=== PATIENT | male | born 1980 | race Hispanic/Latino ===

== ENCOUNTER 2017-12-26 13:15 | Emergency (ER) | payer SELFPAY ==
[2017-12-26] MEDS ORDERED: Adacel (T-DAP) 0.5 ML VIAL ONE (13:40)
--- NOTE | 2017-12-26 14:23 | RAD ---
CHEST ONE VIEW: Comparison: None. History: Trauma. Pain. FINDINGS: Normal cardiac silhouette. The pulmonary vessels and hilum are normal. Costophrenic angles are clear. Lung volumes are diminished, likely due to poor inspiratory effort. No consolidation or mass. No pne umothorax or osseous abnormalities. IMPRESSION: No acute cardiopulmonary process. POS: [facility]
--- NOTE | 2017-12-26 14:30 | CT ---
CT CERVICAL SPINE: Date: 12/26/17 HISTORY: Trauma. Fall 15-ft. FINDINGS: Axial images are obtained with coronal and sagittal reconstructions of the cervical spine. CT images of cervical spine demonstrate cervical spinal alignment to be within normal limits. No evidence of ac michela cervical spine fracture seen. Vertebral bodies and posterior elements are unremarkable. IMPRESSION: Normal CT cervical spine. POS: [facility]
--- NOTE | 2017-12-26 14:33 | CT ---
CT BRAIN: HISTORY: Trauma status post fall 15 feet. The patient hit his head. Noncontrast enhanced CT images of the brain obtained. There is a large left frontal scalp hematoma. The brain is unremarkable. No evidence of intracranial masses, hemorrhages, strokes, or contusions s een. The ventricles are of normal size. Incidentally noted bilateral maxillary sinus mucous retention cyst seen. IMPRESSION: Large left frontal scalp hematoma. No evidence of subdural or subarachnoid hemorrhage seen. POS: [facility]
== END 2017-12-26 14:15 | disposition home or self-care (01) ==
LOC: ERS 13:15
DX: S16.1XXA Strain of muscle, fascia and tendon at neck level, initial encounter (principal); S00.83XA Contusion of other part of head, initial encounter; W17.89XA Other fall from one level to another, initial encounter
CPT/HCPCS: 70450; 71045; 72125; 90471; 90715